=== PATIENT | female | born 1965 | race Caucasian/White ===

== ENCOUNTER 2023-11-04 15:39 | Emergency (ER) | payer BC, OTHER ==
[~2023-11-04] VITALS: Ht 162.6 cm; Wt 69.4 kg
[2023-11-04] MEDS ORDERED: CYCLOBENZAPRINE 10 MG TABLET ONE (17:03)
[2023-11-04] MEDS ORDERED: IBUPROFEN 600 MG TABLET ONE (17:03)
[2023-11-04] MEDS ORDERED: ACETAMINOPHEN ES 500 MG TABLET ONE (17:03)
[2023-11-04] MEDS ORDERED: LIDOCAINE 5% (PATCH) 1 EA PATCH TP ONE (17:03)
[2023-11-04] MEDS: LIDOCAINE 5% (PATCH) 1 EA PATCH TP ONE (17:10)
[2023-11-04] MEDS: ACETAMINOPHEN ES 500 MG TABLET PO ONE (17:10)
[2023-11-04] MEDS: CYCLOBENZAPRINE 10 MG TABLET PO ONE (17:10)
[2023-11-04] MEDS: IBUPROFEN 600 MG TABLET PO ONE (17:10)
[2023-11-04] MEDS ORDERED: CYCL5TAB PO (17:58)
[2023-11-04] MEDS ORDERED: ACET-2605 PO (17:58)
[2023-11-04] MEDS ORDERED: IBUP-1955 PO (17:58)
[2023-11-04 18:12] VITALS: BP 130/84; TEMP 98.7; O2SAT 100
== END 2023-11-04 18:12 | disposition home or self-care (01) ==
LOC: ER 16:01
DX: M54.2 Cervicalgia (principal); M54.6 Pain in thoracic spine; I48.91 Unspecified atrial fibrillation; Z60.2 Problems related to living alone; Z88.0 Allergy status to penicillin; V89.2XXA Person injured in unspecified motor-vehicle accident, traffic, initial encounter; Y93.89 Activity, other specified; Y92.89 Other specified places as the place of occurrence of the external cause; Y99.8 Other external cause status